=== PATIENT | male | born 1955 | race Caucasian/White ===

== ENCOUNTER → 2019-04-04 | Outpatient (CLI) | payer OTHER ==
--- NOTE | ~2019-04-04 | PFR/MVV ---
[facility] [place] [address] PULMONARY FUNCTION MVV/REPORT Name: LESLIE BRAMBILA Room #: REG Momo Nance.#: [id number] Admission: 04/04/19 Attend Phys: DEE PIEDRA DO Discharge: Date of : 57 Report #: [id number] THIS REPORT FOR: //name// COPIES FOR: AGE: 63 SEX/RACE: M/C >> SPIROMETRY: (BTPS) Height: 65 in cm Weight: 160 lbs kg Exam Date: 04/04/19 PRE-RX POST-RX PRED BEST %PRED BEST %PRED %CHG FVC LITERS . 3.83 . 3.43 . 90 . 3.49 . 91 . 2 FEV1 LITERS . 2.74 . 1.89 . 69 . 2.06 . 75 . 9 FEV1/FVC % . 72 . 55 . 77 . 59 . 82 . 7 NRD33-80% L/Sec . 2.78 . 0.71 . 25 . 1.06 . 38 . 50 PEF L/SEC . 7.35 . 5.74 . 78 . 5.16 . 70 . -10 FEF50/FIF50 UNITLESS . <1.00 . 0.76 . . 1.57 . . 105 MVV L/Min . 121 . 56 . 46 f 1/Min . . 165 . >> LUNG VOLUMES: (BTPS) PRE-RX POST-RX PRED AVG %PRED AVG %PRED %CHG VC Liters . 3.83 . 3.43 . 90 . . . TLC Liters . 5.44 . 6.03 . 111 . . . RV Liters . 2.06 . 2.60 . 126 . . . RV/TLC % . 38 . 43 . 114 . . . FRC PL Liters . 3.06 . 3.61 . 118 . . . FRC N2 Liters . 3.06 . . . . . ERV Liters . 1.29 . 1.01 . 78 . . . IC Liters . 2.59 . 1.58 . 61 . . . >> DIFFUSION: DLCO ml/Min/mmHg . 19.9 . 9.6 . 48 . . . DL Andrey ml/Min/mmHg . 19.9 . 9.6 . 48 . . . DLCO/VA ml/Min/mmHg . 3.70 . 0.07 . 2 . . . VA Liters . 6.10 . . 2120 . . . [facility] [address] [place] [address] PULMONARY FUNCTION MVV/REPORT Name: LESLIE BRAMBILA Room #: REG JHONATAN Chiang#: [id number] Admission: 04/04/19 Attend Phys: DEE PIEDRA DO Discharge: Date of : 57 Report #: [id number] COMMENTS: COMMENTS: >> RESISTANCE: PRE-RX PRED AVG %PRED Raw Total cmH20/L/Sec . . 8.39 . Raw Insp cmH20/L/Sec . . 10.19 . Raw Exp cmH20/L/Sec . . 7.84 . Raw cmH20/L/Sec . 1.53 . 8.84 . 576 Gaw L/Sec/cmH20 . 0.734 . 0.113 . 15 sRaw cmH20 Sec . 4.69 . 33.22 . 708 sGaw l/cmH20 Sec . 0.213 . 0.30 . 14 Vtq Liters . . 3.76 . # = OUTSIDE 95% CONFIDENCE INTERVAL CALIBRATION: PRED: 3.00 ACTUAL: EXP 3.01 INSP 3.02 [facility]-OL10-06 [facility]-05 N-1804-4 >> INTERPRETATION/IMPRESSION: CC: DEE GARCIA DATE OF SERVICE: 04/04/2019 PHYSICIAN: Dr. Dee Piedra SPIROMETRY: FEV1 is 1.89 liters (69%), FVC is 3.43 liters (90%). FEV1/FVC ratio is 55%. Post-bronchodilator therapy with no significant response. FEV1 is 2.06 liters (75%). FVC is 3.49 liters, ( 91%). LUNG VOLUMES: Total lung capacity is 6.03 liters (111%). RV is 2.60 liters (126%). Diffusing capacity is 48%. IMPRESSION: Pulmonary function studies are consistent with a mild obstructive [facility] [address] [place] [address] PULMONARY FUNCTION MVV/REPORT Name: LESLIE RBAMBILA Room #: REG JHONATAN Chiang#: [id number] Admission: 04/04/19 Attend Phys: DEE C. TADEO, DO Discharge: Date of : 57 Report #: [id number] airflow defect, with no significant response to bronchodilator therapy. There is mild air trapping. Diffusing capacity is moderately decreased. By: Feroz Vicente MD /nt
== END ==
LOC: PUL 11:43
DX: J84.9 Interstitial pulmonary disease, unspecified (principal); Z79.899 Other long term (current) drug therapy